=== PATIENT | male | born 1970 | race Caucasian/White ===

== ENCOUNTER 2021-10-27 01:58 | Day surgery (SDC) | payer BC, SELFPAY ==
[2021-10-22 12:58] VITALS: BMI 36.6
[2021-10-27 10:43] VITALS: BP 129/76; PULSE 72; RESP 18; TEMP 36.6; O2SAT 97
--- NOTE | 2021-10-27 10:47 | WPDANESEPPF ---
Anes - Initial Pre Proc Eval Procedure: Operation Date: 10/27/21 11:30 Proposed Procedures p Screening Colonoscopy - Enrico Ellis MD Date/Time: 10/27/21 10:47 Surgeon: Enrico Ellis MD Pre Op Diagnosis: neoplasm screening Patient Data Age: 51 Gender: M Height: 1.83 m Weight: 124.2 kg Last Vital Signs Temp 36.6 C 10/27/21 10:43 Pulse 72 10/27/21 10:43 Resp 18 10/27/21 10:43 BP 129/76 10/27/21 10:43 Pulse Ox 97 10/27/21 10:43 Allergies Allergy/AdvReac Type Severity Reaction Status Date / Time No Known Allergies Allergy Verified 10/27/21 10:40 Home Medications Medication Instructions Recorded Confirmed Type allopurinol 300 mg tablet 300 mg PO DAILY #90 tablet 05/30/21 10/22/21 Rx fluoxetine 40 mg capsule See Rx Instructions .ROUTE 06/02/21 10/22/21 Rx .COMPLEX #90 cap lisinopril 10 mg tablet 10 mg PO DAILY #90 tablet 06/02/21 10/22/21 Rx metformin 500 mg tablet See Rx Instructions .ROUTE 06/02/21 10/22/21 Rx .COMPLEX #90 tablet atorvastatin 40 mg tablet 40 mg PO DAILY #90 tablet 09/30/21 10/22/21 Rx semaglutide 3 mg tablet 3 mg PO DAILY 30 Days #30 tablet 09/30/21 10/22/21 Rx Patient hx anesthesia problems: none Family hx anesthesia problems: none Results Review: All pre-operative results and documents have been reviewed as part of the pre-operative evaluation. [facility] Surgical History Surgical History (Updated 10/27/21 @ 10:48 by Nasim Garsia MD) History of gastric bypass Family History Family History Mother No problems noted. Father No problems noted. Sibling Pancreatic cancer Sibling Brain cancer Lung cancer Sibling No problems noted. Social History Social History Smoking packs per day: 1 Smoking cigarettes per day: 20.0 Years smoked: 15 Smoking pack-years: 15.00 Smoking status: Former smoker Tobacco type: cigarettes Alcohol intake: never Substance use: never Substance use type: does not use Living arrangements: alone Spiritual care concerns: No Anes - Eval Final PreProcedure Day of Procedure 10/27/21 10:47 Patient weight: obese Heart: regular rate and rhythm Lungs: clear to auscultation Airway: Mallampati scale class 1 Neurological: alert and oriented Last oral intake: >/= 8 hours ASA classification: III Emergent: no Anesthetic plan: proceed Anesthesia type and monitoring: general GIVS and standard monitoring Results Review: All pre-operative results and documents have been reviewed as part of the pre-operative evaluation. Informed Consent: The patient's anesthetic plan and its attendant risks and benefits were discussed with the patient/family/POA. Questions were solicited and answers provided to the satisfaction of the patient/family/POA.
[2021-10-27] MEDS: LACTATED RINGERS 1,000 ML 150 ML IV CONT (10:52)
[2021-10-27 10:58] LABS: Glucose Point of Care 109 mg/dl (65-105)
--- NOTE | 2021-10-27 11:24 | PM.HPGS ---
History of Present Illness History of Present Illness Consent: Risks, benefits, and alternatives have been discussed and questions answered. Patient agrees to proceed with procedure. Chief complaint: neoplasm screening Narrative: Omkar Rodriges is a 51 year old male here for first screening colonoscopy Review of Systems Constitutional: Constitutional: Denies headache(s) and Denies weakness Eyes: Eyes: Denies blurry vision ENT: Reports Normal hearing present, Denies headache(s) and Denies neck pain Cardiovascular: Cardiovascular: Denies chest pain and Denies dyspnea Respiratory: Respiratory: Denies dyspnea Gastrointestinal: Gastrointestinal: Reports no additional gastrointestinal complaints Genitourinary: Genitourinary: Denies dysuria Musculoskeletal: Musculoskeletal: Denies neck pain Integumentary/Breasts: Skin/Breast: Denies dry skin Neurologic: Reports Normal hearing present, Denies headache(s) and Denies weakness Psychiatric: Psychiatric: Denies anxiety Endocrine: Endocrine: Denies change in body appearance Hematologic/Lymphatic: Hematologic/Lymphatic: Denies easy bleeding Allergic/Immunologic: Allergic/Immunologic: Denies urticaria PMF Past Medical History Medical History (Updated 10/27/21 @ 11:24 by Enrico Ellis MD) Colon cancer screening Surgical History Surgical History (Updated 10/27/21 @ 10:48 by Nasim Garsia MD) History of gastric bypass Family History Family History Mother No problems noted. Father No problems noted. Sibling Pancreatic cancer Sibling Brain cancer Lung cancer Sibling No problems noted. Social History Social History Smoking packs per day: 1 Smoking cigarettes per day: 20.0 Years smoked: 15 Smoking pack-years: 15.00 Smoking status: Former smoker Tobacco type: cigarettes Alcohol intake: never Substance use: never Substance use type: does not use Living arrangements: alone Spiritual care concerns: No Meds Home Medications and Allergies Home Medications Medication Instructions Recorded Confirmed Type allopurinol 300 mg tablet 300 mg PO DAILY #90 tablet 05/30/21 10/22/21 Rx fluoxetine 40 mg capsule See Rx Instructions .ROUTE 06/02/21 10/22/21 Rx .COMPLEX #90 cap lisinopril 10 mg tablet 10 mg PO DAILY #90 tablet 06/02/21 10/22/21 Rx metformin 500 mg tablet See Rx Instructions .ROUTE 06/02/21 10/22/21 Rx .COMPLEX #90 tablet atorvastatin 40 mg tablet 40 mg PO DAILY #90 tablet 09/30/21 10/22/21 Rx semaglutide 3 mg tablet 3 mg PO DAILY 30 Days #30 tablet 09/30/21 10/22/21 Rx Allergies Allergy/AdvReac Type Severity Reaction Status Date / Time No Known Allergies Allergy Verified 10/27/21 10:40 Vital Signs Vital Signs - 24 hr 10/27/21 10:43 Temperature 97.8 F Pulse Rate 72 Respiratory Rate 18 Blood Pressure 129/76 Pulse Oximetry 97 Exam Const: General: comfortable and no acute distress HENMT: General nose exam: Normal nares present Eyes: General: appearance normal, both eyes and all related structures Neck: Neck: no JVD Resp: Auscultation: clear to auscultation bilaterally Cardio: Rate: regular rate Rhythm: regular rhythm GI: Inspection: non-distended GI Palp: Yes Soft to palpation Skin: General skin exam: normal color Neuro: General: gait normal Speech: normal speech Extrem: General: normal to inspection Psych: Mental Status: mental status grossly normal Assessment and Plan Assessment and plan (1) Colon cancer screening: Code(s): Z12.11 - Encounter for screening for malignant neoplasm of colon Status: Acute Assessment and Plan: colonoscopy
[2021-10-27 11:46] VITALS: BP 95/67; PULSE 82; RESP 17; O2SAT 96
[2021-10-27 11:56] VITALS: BP 96/64; PULSE 76; RESP 20; O2SAT 98
[2021-10-27 12:06] VITALS: BP 109/81; PULSE 76; RESP 21; O2SAT 99
== END 2021-10-27 12:16 | disposition home or self-care (01) ==
PROVIDERS: PCP Family Medicine; Visit Provider Internal Medicine Gastroenterology
PROC: 0DJD8ZZ Inspection of Lower Intestinal Tract, Via Natural or Artificial Opening Endoscopic (ICD-10-PCS; CPT 45378; principal; 2021-10-27 11:30)
DX: Z12.11 Encounter for screening for malignant neoplasm of colon (principal); D12.3 Benign neoplasm of transverse colon; K57.30 Diverticulosis of large intestine without perforation or abscess without bleeding; K64.8 Other hemorrhoids; Z98.84 Bariatric surgery status; Z87.891 Personal history of nicotine dependence
CPT/HCPCS: 45380; 82948; 88305; J2704; J7120

== ENCOUNTER 2022-11-30 14:39 | Outpatient (CLI) | payer BC, SELFPAY ==
--- NOTE | ~2022-11-30 | CT_ITS ---
EXAMINATION: CT brain wo con DATE: 11/30/2022 14:59 INDICATION: headache associated with sexual activity . TECHNIQUE: Computed tomography (CT) of the head was performed without intravenous contrast. The mA wa s adjusted according to patient size. Iterative reconstruction technique was employed. The dose-lengt h product was 681.00 mGy-cm. COMPARISON: None. FINDINGS: No acute intracranial hemorrhage or extra-axial fluid collection. No hydrocephalus, mass, or herniation. No acute ischemic infarct. Unremarkable dural venous sinus attenuation. No acute osseous abnormality. The aerated spaces are clear. Mild atrophy and chronic white matter change. Atherosclerotic intracranial calcification. IMPRESSION: No acute intracranial process. Reviewed, dictated and finalized at location K. SCAN TECH
== END 2022-11-30 14:40 | disposition home or self-care (01) ==
PROVIDERS: PCP Family Medicine; Visit Provider Physician Assistant
DX: G44.82 Headache associated with sexual activity (principal)
CPT/HCPCS: 70450

== ENCOUNTER 2022-12-08 13:31 | Outpatient (CLI) | payer BC, SELFPAY ==
--- NOTE | ~2022-12-08 | CT_ITS ---
CT ANGIOGRAM NECK AND HEAD History: Headache. Technique: Axial noncontrast images of the brain were performed. Serial spiral axial images through t he head and neck were 9 obtained during arterial phase IV injection of 100 cc of Omnipaque 350. 3-D p ostprocessing and MIP images were then reconstructed on the remote workstation. Dose reduction techni que was used on this scan by utilizing automated exposure control and iterative reconstruction techni que. The dose-length product (DLP) was 1758.82 mGy-cm. CTA neck findings: Bilateral common carotid, internal carotid, and external carotid arteries are pat ent. There are calcified plaques at the bilateral proximal internal carotid arteries. The proximal ri ght internal carotid artery demonstrates 50% stenosis relative to the normal distal artery lumen diam eter. The proximal left internal carotid artery demonstrates 0% stenosis relative to the normal dista l artery lumen diameter. CTA head findings: Distal vertebral arteries, basilar artery, and posterior cerebral arteries are pat ent. Distal internal carotid arteries, middle cerebral arteries, and anterior cerebral arteries are p atent. No large vessel occlusion. There is atherosclerotic change in the cavernous portion of the jayme ateral distal internal carotid arteries. No significant abnormality seen on noncontrast brain images. Impression: 50% stenosis of the proximal right internal carotid artery relative to the normal distal artery lumen diameter, related to calcified plaque. No other significant abnormality. Reviewed, dictated and finalized at location . DER NEEDLE TIP Impression: 50% stenosis of the proximal right internal carotid artery relative to the norm al distal artery lumen diameter, related to calcified plaque. No other significant abnormality.
[2022-12-08 13:51] LABS: Estimated Glomerular Filt Rate > 60
== END 2022-12-08 13:32 | disposition home or self-care (01) ==
PROVIDERS: PCP Family Medicine; Visit Provider Physician Assistant
DX: I65.21 Occlusion and stenosis of right carotid artery (principal); G44.82 Headache associated with sexual activity
CPT/HCPCS: 70496; 70498; Q9967

== ENCOUNTER 2023-08-16 09:58 | Outpatient (CLI) | payer BC, SELFPAY ==
--- NOTE | ~2023-08-16 | CT_ITS ---
CT Scan of the Chest without Contrast: Clinical Indication: Lung cancer screening, smoking history Technique: Contiguous sections were acquired throughout the chest without intravenous contrast. Dose reduction technique was used on this scan by utilizing automated exposure control and iterative recon struction technique. The dose-length product (DLP) was 227.34 mGy-cm. Findings: There is no evidence of any significant mediastinal, hilar or axillary lymphadenopathy. Coronary amanuel ry calcifications are present. There is no evidence of pleural or pericardial effusion. No pulmonary nodule identified. There is mild patchy groundglass opacity at the lung bases, possibly hypoventilatory change. Images through the upper abdomen reveal no abnormalities. Impression: Lung RADS 1: Negative. 12 month follow-up screening CT advised. Reviewed, dictated and finalized at location . Impression: Lung RADS 1: Negative. 12 month follow-up screening CT advised.
== END 2023-08-16 09:59 | disposition home or self-care (01) ==
PROVIDERS: PCP Family Medicine; Visit Provider Family Medicine
DX: Z12.2 Encounter for screening for malignant neoplasm of respiratory organs (principal); Z87.891 Personal history of nicotine dependence
CPT/HCPCS: 71271